=== PATIENT | male | born 1985 | race Two or more races ===

== ENCOUNTER 2019-10-31 20:55 | Emergency (ER) | payer OTHER ==
[~2019-10-31] VITALS: Ht 165.1 cm; Wt 89.8 kg
[2019-10-31] MEDS ORDERED: BENAZEPRIL HCL10 MG ORAL (21:12)
[2019-10-31] MEDS ORDERED: METFORMIN HCL850 M1 ORAL (21:12)
[2019-10-31 21:15] VITALS: BP 136/90
[2019-10-31] MEDS ORDERED: Acetaminophen 500mg (ES) tab ORAL ONE (21:15)
[2019-10-31] MEDS ORDERED: DiphenhydrAMINE 50mg/ml Inj IM ONE (21:15)
[2019-10-31] MEDS ORDERED: Metoclopramide 10mg/2ml Inj IM ONE (21:15)
[2019-10-31] MEDS ORDERED: Ketorolac 30mg Inj IM ONE (21:15)
--- NOTE | 2019-10-31 21:15 | NUR ---
ED Nurse Note: Pt walked into ED from home for c/o headache onset 4 days ago. Pt states pain is 8/10. Pt reports he had a large pot fall ontop of his head at work 4 days ago and has had the intermittent headache since. Pt is aaox4, no cardiac or respiratory distress noted, ambulatory with steady gait. Will continue to monitor.
--- NOTE | 2019-10-31 21:24 | Emergency Room Report ---
History of Present Illness General Chief Complaint: Headache Source: Patient Present Illness HPI 34-year-old male history of hypertension, diabetes presents with head trauma 4 days ago, he states a pot fell on his head, at work, ever since then he had a gradual onset of headache, no aggravating relieving factors severity is moderate , he feels on the right side, achy in nature no fevers no chills no change in vision no shortness of breath, no focal weakness, headache was not sudden onset not the worst headache of his life patient presents for evaluation Allergies: Coded Allergies: No Known Allergies (Unverified , 10/31/19) Patient History Past Medical History: see triage record Reviewed Nursing Documentation: PMH: Agreed; PSxH: Agreed Nursing Documentation-PMH Past Medical History: No History, Except For Hx Hypertension: Yes Hx Diabetes: Yes Review of Systems All Other Systems: negative except mentioned in HPI Physical Exam Vital Signs Date Time Temp Pulse Resp B/P (MAP) Pulse Ox O2 Delivery O2 Flow Rate FiO2 10/31/19 21:08 98.2 63 14 136/90 (105) 96 Room Air Sp02 EP Interpretation: reviewed, normal General Appearance: well appearing, no apparent distress, alert Head: normocephalic, atraumatic Eyes: bilateral eye PERRL, bilateral eye EOMI ENT: uvula midline, moist mucus membranes Neck: supple, thyroid normal, supple/symm/no masses Respiratory: lungs clear, no respiratory distress, no retraction, no accessory muscle use Cardiovascular #1: normal peripheral pulses, regular rate, rhythm, no edema, no gallop, no murmur Gastrointestinal: non tender, soft, no guarding, no rebound Musculoskeletal: normal inspection Neurologic: alert, 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, oriented x3, sensory intact, cerebellar normal - Finger-nose testing intact, Romberg negative, speech normal , normal gait, no pronator Psychiatric: mood/affect normal Skin: no rash, warm/dry Medical Decision Making Diagnostic Impression: Primary Impression: Closed head injury Qualified Codes: S09.90XA - Unspecified injury of head, initial encounter Additional Impression: Headache Qualified Codes: R51 - Headache ER Course 34-year-old male, no exam presents with closed head injury, and post headache afterwards, differential diagnosis includes headache, postconcussive headache, concussion Patient is insistent on a CT head, CT head is currently negative, patient's headache resolved with headache cocktail was given Reglan, Benadryl, Toradol, Tylenol and Decadron Disposition home with return precautions Follow-up with PCP CT/MRI/US Diagnostic Results CT/MRI/US Diagnostic Results : Impression Final Report EXAM: CT Head Without Intravenous Contrast CLINICAL HISTORY: H/A TECHNIQUE: Axial computed tomography images of the head/brain without intravenous contrast. CTDI is 62.7 mGy and DLP is 1395 mGy-cm. One or more of the following dose reduction techniques were used: automated exposure control, adjustment of the mA and/or kV according to patient size, use of iterative reconstruction technique. COMPARISON: No relevant prior studies available. FINDINGS: Brain: Unremarkable. No hemorrhage. No significant white matter disease. No edema. Ventricles: Unremarkable. No ventriculomegaly. Bones/joints: Unremarkable. No acute fracture. Soft tissues: Unremarkable. Sinuses: Unremarkable as visualized. No acute sinusitis. Mastoid air cells: Unremarkable as visualized. No mastoid effusion. IMPRESSION: No acute abnormality Radiologist: All Wilson MD Electronically Signed: 10/31/19 22:12 Study ready at 21:55 and initial results transmitted at 22:12 Last Vital Signs Date Time Temp Pulse Resp B/P (MAP) Pulse Ox O2 Delivery O2 Flow Rate FiO2 10/31/19 21:15 98.2 63 14 136/90 96 Room Air Disposition: HOME, SELF-CARE Condition: Stable Referrals: [facility] Jhon Rosen. [facility] Patient Instructions: Head Injury, Adult, General Headache Without Cause Additional Instructions: The patient was provided with discharge instructions, notified to follow-up with a primary care doctor and or specialist in the next 24-48 hours, and to return to the ED if they have worsening of their symptoms. Please note that this report is being documented using [employer] technology. This can lead to erroneous entry secondary to incorrect interpretation by the dictating instrument. Vance Singh MD Oct 31, 2019 21:23
--- NOTE | 2019-10-31 22:13 | Diagnostic Imaging Report ---
EXAM: CT Head Without Intravenous Contrast CLINICAL HISTORY: H/A TECHNIQUE: Axial computed tomography images of the head/brain without intravenous contrast. CTDI is 62.7 mGy and DLP is 1395 mGy-cm. One or more of the following dose reduction techniques were used: automated exposure control, adjustment of the mA and/or kV according to patient size, use of iterative reconstruction technique. COMPARISON: No relevant prior studies available. FINDINGS: Brain: Unremarkable. No hemorrhage. No significant white matter disease. No edema. Ventricles: Unremarkable. No ventriculomegaly. Bones/joints: Unremarkable. No acute fracture. Soft tissues: Unremarkable. Sinuses: Unremarkable as visualized. No acute sinusitis. Mastoid air cells: Unremarkable as visualized. No mastoid effusion. IMPRESSION: No acute abnormality
[2019-10-31 22:30] VITALS: BP 128/95
--- NOTE | 2019-10-31 22:30 | NUR ---
ER DISCHARGE NOTE: Patient is cleared to be discharged per ERMD, pt is aox4, on room air, with stable vital signs. pt was given dc and prescription instructions, pt was able to verbalize understanding. pt is able to ambulate with steady gait. pt took all belongings.
== END 2019-10-31 22:30 | disposition home or self-care (01) ==
LOC: EMR 22:30
DX: S09.90XA Unspecified injury of head, initial encounter (principal); R51 Headache; E11.9 Type 2 diabetes mellitus without complications; I10 Essential (primary) hypertension; W20.8XXA Other cause of strike by thrown, projected or falling object, initial encounter; Y92.9 Unspecified place or not applicable
CPT/HCPCS: 70450; 96372; 99284; J1200; J1885; J2765; J8540